=== PATIENT | female | born 1980 | race Two or more races ===

== ENCOUNTER 2019-04-27 15:46 | Emergency (ER) | payer BC, OTHER ==
[2019-04-27 16:12] VITALS: BP 126/77; PULSE 98; TEMP 97.9
--- NOTE | 2019-04-27 16:14 | PDOC ---
Rapid Medical Evaluation Time Seen by Provider: 04/27/19 16:09 Medical Evaluation: Allergies Allergy/AdvReac Type Severity Reaction Status Date / Time No Known Allergies Allergy Verified 04/27/19 16:10 04/27/19 16:12 CC: Rolled left ankle Pt is a 38 y/o female who presents to the ED with a L ankle inversion injury that she sustained this morning. She is able to walk on it but it is very painful. She declined anything for pain. Brief exam: L ankle swelling appreciated. Minimal tenderness over the lateral malleolus. DP pulse 2+. Orders: L foot/ankle xray To ED for further evaluation Discharge Disposition - Diagnosis Left ankle pain - Referrals - Patient Instructions - Post Discharge Activity
--- NOTE | 2019-04-27 16:28 | PDOC ---
History of Present Illness - General Chief Complaint: Injury Stated Complaint: LF ANKLE INJURY Time Seen by Provider: 04/27/19 16:09 History Source: Patient Exam Limitations: No Limitations Past History - Past Medical History Allergies/Adverse Reactions: Allergies Allergy/AdvReac Type Severity Reaction Status Date / Time No Known Allergies Allergy Verified 04/27/19 16:10 Home Medications: Ambulatory Orders Atorvastatin Ca [Lipitor] 20 mg PO HS 04/27/19 COPD: No Hypercholesterolemia: Yes - Psycho Social/Smoking Cessation Hx Smoking History: Never smoked *Physical Exam - Vital Signs Last Vital Signs Temp Pulse Resp BP Pulse Ox 97.9 F 98 H 18 126/77 98 04/27/19 16:11 04/27/19 16:11 04/27/19 16:11 04/27/19 16:11 04/27/19 16:11 - Physical Exam General Appearance: No: Apparent Distress Extremity: positive: Other (+swelling and TTP along L lateral malleolus, no deformity, no ecchyomsis, 2+ pedal pulses, sensation intact, normal skin color) Integumentary: positive: Normal Color. negative: Ecchymosis, Bruising Neurologic: positive: Alert Medical Decision Making - Medical Decision Making 38 y/o F hx of HLD presents s/p twisting her L ankle today in the parking lot. Denies other injuries. R/O fracture Plan: xray; patient refused pain meds for now 04/27/19 16:27 xray shows isolated distal fibular fracture placed in aircast splint, given crutches 04/27/19 17:34 Discharge - Discharge Information Problems reviewed: Yes Clinical Impression/Diagnosis: Left fibular fracture Qualifiers: Encounter type: initial encounter Fibula location: distal Fracture type: closed Fracture morphology: other fracture Qualified Code(s): S82.832A - Other fracture of upper and lower end of left fibula, initial encounter for closed fracture Condition: Stable Disposition: HOME - Admission No - Additional Discharge Information Prescription Drug Monitoring Program (I-STOP) results: I-STOP not reviewed - Follow up/Referral Referrals: Rose Galloway MD [Primary Care Provider] - Rasta Renteria MD [Staff Physician] - 2 Days - Patient Discharge Instructions Patient Printed Discharge Instructions: DI for Ankle Fracture Additional Instructions: Thank you for choosing [facility]. It was a pleasure taking care of you. You may take Motrin 600 mg every 6 hours by mouth as needed for mild to moderate pain. Take Motrin with food. Keep leg elevated to help decrease swelling You may ice site as well You were referred to orthopedics for further evaluation Return to the Emergency Department if your symptoms worsen or persist or have other concerning symptoms. - Post Discharge Activity Work/Back to School Note: Back to Work
[2019-04-27] MEDS ORDERED: IBUPROFEN 600 MG TABLET (FP) PO ONE ×2 (17:15→17:20)
== END 2019-04-27 17:39 | disposition home or self-care (01) ==
LOC: JERFT 15:46
PROC: 2W3RX1Z Immobilization of Left Lower Leg using Splint (ICD-10-PCS; principal; 2019-04-27)
DX: S82.832A Other fracture of upper and lower end of left fibula, initial encounter for closed fracture (principal); X50.1XXA Overexertion from prolonged static or awkward postures, initial encounter; Y93.89 Activity, other specified; Y92.481 Parking lot as the place of occurrence of the external cause; Y99.8 Other external cause status
CPT/HCPCS: 73610-TC-LT-FY; 73630-TC-LT; 99282-25